=== PATIENT | female | born 1940 | race Caucasian/White ===

== ENCOUNTER → 2021-07-12 | Outpatient (CLI) | payer MEDICARE ==
--- NOTE | 2021-07-12 16:38 | KCIC ---
EXAM: Brain MRI without contrast. HISTORY: Double vision. Stroke. TECHNIQUE: Multiplanar, multisequence magnetic resonance imaging of the brain was performed without c ontrast. COMPARISON: None. FINDINGS: There is no restricted diffusion to suggest acute or subacute infarction. There is no mass effect or midline shift. There are chronic infarct involving the left cerebral peduncle, left nory an d left cerebellum. There is cerebral volume loss. There are a few scattered focal areas of signal change throughout the cerebral white matter, likely d ue to chronic small vessel disease. There is evidence of lens surgery. There is mild ethmoid sinus mu cosal thickening. The mastoid air cells are clear. There are normal flow voids within the cerebral ve ssels. There is no suspicious calvarial lesion. There is soft tissue pannus surrounding the dens. The re is no hemorrhage. IMPRESSION: 1. No acute intracranial finding. 2. 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 3. Scattered areas signal change within the cerebral white matter, likely due to chronic small vessel disease. 3. Cerebral volume loss. Electronically signed by: Jayla Maynard MD (07/12/2021 4:36 PM) [facility]
== END ==
LOC: KCIC MRI 14:39
PROVIDERS: ATTEND Nurse Practitioner Family
DX: I63.9 Cerebral infarction, unspecified (principal); H53.2 Diplopia
CPT/HCPCS: 70551